=== PATIENT | male | born 1965 | race Caucasian/White ===

== ENCOUNTER 2016-08-14 16:01 | Emergency (ER) | payer MEDICAID, OTHER ==
[~2016-08-14] VITALS: Ht 170.2 cm; Wt 102.1 kg
[~2016-08-14 16:01] MED LIST: CITA-30; CLON1TAB72
[2016-08-14 16:32] VITALS: BP 128/84
[2016-08-14] MEDS ORDERED: KETOROLAC TROMETH 30 MG/ML 1ML VIAL IV ONE (17:30)
[2016-08-14] MEDS ORDERED: PROMETHAZINE HCL 25 MG/ML 1ML IV ONE (17:30)
[2016-08-14] MEDS ORDERED: HYDR-391 PO (17:51)
[2016-08-14] MEDS ORDERED: NAP500T PO (17:51)
== END 2016-08-14 18:13 | disposition home or self-care (01) ==
LOC: EDBD 16:01 → ER 16:03
DX: S42.351A Displaced comminuted fracture of shaft of humerus, right arm, initial encounter for closed fracture (principal); K76.9 Liver disease, unspecified; F12.10 Cannabis abuse, uncomplicated; Z88.8 Allergy status to other drugs, medicaments and biological substances; X58.XXXA Exposure to other specified factors, initial encounter; Y93.89 Activity, other specified; Y99.8 Other external cause status; Y92.89 Other specified places as the place of occurrence of the external cause
CPT/HCPCS: 29105; 73060; 96374; 96375; 99284; J1885; J2550

== ENCOUNTER 2016-08-27 18:14 | Inpatient (IN) | payer MEDICAID ==
[~2016-08-27] VITALS: Ht 170.2 cm; Wt 103.0 kg
[~2016-08-27 18:14] MED LIST changes: +HYDR-391 PO; +NAP500T PO
[2016-08-27 19:08] LABS: Basophils # (auto) 0 uL; Basophils % (auto) 0.6 % (0.0-2.0); Eosinophils # (auto) 0 uL; Eosinophils % (auto) 0.5 % (0.0-7.0); Hematocrit 45.3 % (41.0-53.0); Hemoglobin 15.2 g/dL (13.5-17.5); Lymphocytes # (auto) 1.7 uL; Lymphocytes % (auto) 22.2 % (10.0-50.0); Mean Corpuscular Hemoglobin 33.5 pg (28.0-32.0); Mean Corpuscular Hgb Conc. 33.6 g/dL (32.0-36.0); Mean Corpuscular Volume 99.7 fL (80.0-100.0); Mean Platelet Volume 8.9 fL (7.4-10.4); Monocytes # (auto) 0.5 uL; Monocytes % (auto) 6.2 % (0.0-12.0); Neutrophils # (auto) 5.3 uL; Neutrophils % (auto) 70.5 % (37.0-80.0); Platelet Count (auto) 193 10^3/uL (140-450); Red Cell Distribution Width 13.3 % (11.6-16.0); White Blood Cell 7.6 10^3/uL (4.4-10.8)
[2016-08-27 19:15] LABS: INR 1.07 (0.9-1.15)
[2016-08-27] MEDS ORDERED: SODIUM CHLORIDE 0.9% 1,000 ML IVB ONE (19:34)
[2016-08-27 19:36] LABS: Albumin 4.4 g/dL (3.4-5.0); BUN/Creatinine Ratio 14.3; Calcium 8.4 mg/dL (8.5-10.1); Potassium 3.5 mmol/L (3.5-5.1)
[2016-08-27 19:39] LABS: Bilirubin, Total 1.8 mg/dL (0.2-1.0); Total Protein 8.2 g/dL (6.4-8.2)
[2016-08-27] MEDS ORDERED: PANTOPRAZOLE SODIUM 40 MG/10 ML VIAL IV ONE (19:45)
[2016-08-27] MEDS ORDERED: THIAMINE INJ 100 MG, MULTIPLE VITAMIN 10 ML, FOLIC ACID 1 MG, MAGNESIUM SULF SDV 50% 8 ... IV ONE ×5 (21:15)
[2016-08-27] MEDS ORDERED: BANANA BAG KIT 1 EA IV ONE (21:28)
[2016-08-27] MEDS ORDERED: LORazepam 2MG/ML-1ML VIAL IV ONE (22:15)
[2016-08-27] MEDS ORDERED: LORazepam 2MG/ML-1ML VIAL IV PRN (22:30)
[2016-08-27] MEDS ORDERED: NITROGLYCERIN 0.4 MG SL TAB SL PRN (22:30)
[2016-08-27] MEDS ORDERED: LACTULOSE 20Gm/30ML SOLN PO PRN (22:30)
[2016-08-27] MEDS ORDERED: MORPHINE SULF INJ 2 MG/ML SYRINGE 1ML IV PRN (22:30)
[2016-08-27] MEDS ORDERED: MILK OF MAGNESIA 30ML SUSP PO PRN (22:30)
[2016-08-27] MEDS: SODIUM CHLORIDE 0.9% 1,000 ML IV SCH (22:41)
[2016-08-27 23:28] LABS: Amylase 58 U/L (25-115)
[2016-08-28 01:15] LABS: Hematocrit 43.3 % (41.0-53.0); Hemoglobin 14.4 g/dL (13.5-17.5)
[2016-08-28] MEDS: clonazePAM 0.5 MG TAB PO PRN ×2 (02:18→08:59)
[2016-08-28 05:00] VITALS: BP 147/100
[2016-08-28 06:00] LABS: Basophils # (auto) 0 uL; Basophils % (auto) 0.3 % (0.0-2.0); Eosinophils # (auto) 0.1 uL; Eosinophils % (auto) 0.7 % (0.0-7.0); Hematocrit 44.8 % (41.0-53.0); Hemoglobin 15.1 g/dL (13.5-17.5); Lymphocytes # (auto) 2.3 uL; Mean Corpuscular Hemoglobin 33.8 pg (28.0-32.0); Mean Corpuscular Hgb Conc. 33.7 g/dL (32.0-36.0); Mean Corpuscular Volume 100.4 fL (80.0-100.0); Mean Platelet Volume 9.4 fL (7.4-10.4); Monocytes # (auto) 0.7 uL; Monocytes % (auto) 7.7 % (0.0-12.0); Neutrophils # (auto) 5.9 uL; Neutrophils % (auto) 65.3 % (37.0-80.0); Platelet Count (auto) 199 10^3/uL (140-450); Red Cell Distribution Width 13.7 % (11.6-16.0)
[2016-08-28 06:29] LABS: Albumin 4.3 g/dL (3.4-5.0); BUN/Creatinine Ratio 17.7; Bilirubin, Total 2.4 mg/dL (0.2-1.0); Calcium 8.6 mg/dL (8.5-10.1); Potassium 3.4 mmol/L (3.5-5.1)
[2016-08-28] MEDS: CITALOPRAM HYDROBR 20 MG TAB PO SCH (08:59)
[2016-08-28 09:00] VITALS: BP 149/91
[2016-08-28] MEDS: PANTOPRAZOLE SODIUM 40 MG/10 ML VIAL IV SCH (09:36)
[2016-08-28] MEDS: SODIUM CHLORIDE 0.9% 1,000 ML IV SCH (10:57)
[2016-08-28 12:22] LABS: Hematocrit 45.7 % (41.0-53.0); Hemoglobin 15.2 g/dL (13.5-17.5)
[2016-08-28 13:00] VITALS: BP 139/83
[2016-08-28] MEDS: HYDROmorphone HCL 2 MG/ML VL IV PRN ×2 (15:06→22:30)
[2016-08-28 17:00] VITALS: BP 148/84
[2016-08-28 21:28] VITALS: BP 151/92
[2016-08-29] VITALS (7 sets, daily range): BP systolic 123–160; BP diastolic 78–100
[2016-08-29] MEDS: SODIUM CHLORIDE 0.9% 1,000 ML IV SCH ×2 (00:07→11:59)
[2016-08-29] MEDS: HYDROmorphone HCL 2 MG/ML VL IV PRN ×4 (02:32→21:51)
[2016-08-29 05:49] LABS: Urine Bilirubin Negative (Negative); Urine Blood Negative /uL (Negative); Urine Color Yellow (Yellow); Urine Glucose Normal (Normal); Urine Ketone 1+ (Negative); Urine Mucus FEW (None Seen); Urine Nitrite Negative (Negative); Urine RBC <1 /hpf (0 - 3); Urine pH 5.5 (5.0-8.0)
[2016-08-29 07:21] LABS: Basophils # (auto) 0 uL; Basophils % (auto) 0.5 % (0.0-2.0); Eosinophils # (auto) 0.2 uL; Eosinophils % (auto) 4.3 % (0.0-7.0); Hemoglobin 14.1 g/dL (13.5-17.5); Lymphocytes # (auto) 1.3 uL; Mean Corpuscular Hemoglobin 33.8 pg (28.0-32.0); Mean Corpuscular Hgb Conc. 33.5 g/dL (32.0-36.0); Mean Corpuscular Volume 100.8 fL (80.0-100.0); Monocytes # (auto) 0.5 uL; Monocytes % (auto) 8.7 % (0.0-12.0); Neutrophils # (auto) 3.6 uL; Neutrophils % (auto) 63.5 % (37.0-80.0); Platelet Count (auto) 159 10^3/uL (140-450); Red Cell Distribution Width 13.3 % (11.6-16.0); White Blood Cell 5.7 10^3/uL (4.4-10.8)
[2016-08-29 07:46] LABS: Albumin 3.8 g/dL (3.4-5.0); BUN/Creatinine Ratio 26.9; Bilirubin, Total 2.2 mg/dL (0.2-1.0); Calcium 8.5 mg/dL (8.5-10.1); Magnesium 2.2 mg/dL (1.6-2.6); Potassium 3.4 mmol/L (3.5-5.1); Total Protein 7.3 g/dL (6.4-8.2)
[2016-08-29] MEDS: PANTOPRAZOLE SODIUM 40 MG/10 ML VIAL IV SCH ×2 (10:02→21:50)
[2016-08-29] MEDS: CITALOPRAM HYDROBR 20 MG TAB PO SCH (10:04)
[2016-08-29] MEDS: POTASSIUM CHL 20MEQ/100ML 100 ML IV SCH ×2 (10:05→12:05)
[2016-08-29] MEDS ORDERED: THIAMINE INJ 100 MG, MULTIPLE VITAMIN 10 ML, FOLIC ACID 1 MG, MAGNESIUM SULF SDV 50% 8 ... IV SCH ×5 (12:00)
[2016-08-29] MEDS: THIAMINE INJ 100 MG, MULTIPLE VITAMIN 10 ML, FOLIC ACID 1 MG, MAGNESIUM SULF SDV 50% 8 ... IV SCH ×5 (14:30)
[2016-08-29] MEDS: clonazePAM 0.5 MG TAB PO PRN (21:51)
[2016-08-30] MEDS: SODIUM CHLORIDE 0.9% 1,000 ML IV SCH ×2 (00:27→09:08)
[2016-08-30] MEDS: HYDROmorphone HCL 2 MG/ML VL IV PRN ×4 (02:07→20:29)
[2016-08-30] MEDS: clonazePAM 0.5 MG TAB PO PRN ×2 (05:26→21:58)
[2016-08-30 05:46] VITALS: BP 141/75
[2016-08-30 06:25] LABS: Basophils # (auto) 0 uL; Basophils % (auto) 0.4 % (0.0-2.0); Eosinophils # (auto) 0.3 uL; Eosinophils % (auto) 5.5 % (0.0-7.0); Hematocrit 42.9 % (41.0-53.0); Hemoglobin 14.4 g/dL (13.5-17.5); Lymphocytes # (auto) 1.6 uL; Lymphocytes % (auto) 25.5 % (10.0-50.0); Mean Corpuscular Hgb Conc. 33.5 g/dL (32.0-36.0); Mean Corpuscular Volume 101.4 fL (80.0-100.0); Mean Platelet Volume 9.5 fL (7.4-10.4); Monocytes # (auto) 0.6 uL; Monocytes % (auto) 9.1 % (0.0-12.0); Neutrophils # (auto) 3.7 uL; Neutrophils % (auto) 59.5 % (37.0-80.0); Platelet Count (auto) 176 10^3/uL (140-450); Red Cell Distribution Width 13.4 % (11.6-16.0); White Blood Cell 6.3 10^3/uL (4.4-10.8)
[2016-08-30 07:01] LABS: Albumin 3.7 g/dL (3.4-5.0); BUN/Creatinine Ratio 22.8; Bilirubin, Total 1.6 mg/dL (0.2-1.0); Calcium 8.4 mg/dL (8.5-10.1); Potassium 3.3 mmol/L (3.5-5.1); Total Protein 7.2 g/dL (6.4-8.2)
[2016-08-30] MEDS ORDERED: SODIUM CHLORIDE LOCK 10 ML ONE (08:23)
[2016-08-30] MEDS ORDERED: FLUMAZENIL 0.1 MG/ML INJ 10ML MDV IV ONE (08:24)
[2016-08-30] MEDS ORDERED: diphenhdrAMINE HCL 50 MG/1 ML VL ONE (08:24)
[2016-08-30] MEDS ORDERED: NALOXONE HCL 0.4 MG/ML VIAL ONE (08:24)
[2016-08-30] MEDS ORDERED: LIDOCAINE VISCOUS 2% 15ML UD ONE (08:24)
[2016-08-30 08:48] VITALS: BP 153/93
[2016-08-30 09:10] LABS: INR 1.07 (0.9-1.15); Partial Thromboplastin Time 26.4 sec (22.64-33.71)
[2016-08-30] MEDS: PANTOPRAZOLE SODIUM 40 MG/10 ML VIAL IV SCH (09:55)
[2016-08-30] MEDS: CITALOPRAM HYDROBR 20 MG TAB PO SCH (09:56)
[2016-08-30] MEDS ORDERED: POTASSIUM CHLORIDE 40 MEQ, LIDOCAINE 1% (LOCAL ANESTH.) 4 ML in SODIUM CHL 0.9% 250 ML IV ONE (10:45)
[2016-08-30] MEDS: fentaNYL CITRATE 100 MCG/2 ML VL ONE ×2 (11:27→11:30)
[2016-08-30] MEDS: MIDAZOLAM HCL 5 MG/ML-1ML VIAL ONE ×2 (11:27→11:30)
[2016-08-30] MEDS: THIAMINE INJ 100 MG, MULTIPLE VITAMIN 10 ML, FOLIC ACID 1 MG, MAGNESIUM SULF SDV 50% 8 ... IV SCH ×5 (15:48)
[2016-08-30 17:09] VITALS: BP 144/87
[2016-08-30] MEDS: PANTOPRAZOLE 40 MG TAB PO SCH (21:59)
[2016-08-30 22:21] VITALS: BP 155/87
[2016-08-31] MEDS: HYDROmorphone HCL 2 MG/ML VL IV PRN ×4 (00:46→22:39)
[2016-08-31] MEDS: SODIUM CHLORIDE 0.9% 1,000 ML IV SCH ×2 (01:27→14:36)
[2016-08-31 05:30] VITALS: BP 148/79
[2016-08-31 05:51] LABS: Basophils # (auto) 0 uL; Basophils % (auto) 0.5 % (0.0-2.0); Eosinophils # (auto) 0.3 uL; Eosinophils % (auto) 5.4 % (0.0-7.0); Hematocrit 42.7 % (41.0-53.0); Hemoglobin 14.3 g/dL (13.5-17.5); Lymphocytes # (auto) 1.3 uL; Lymphocytes % (auto) 20.5 % (10.0-50.0); Mean Corpuscular Hemoglobin 33.6 pg (28.0-32.0); Mean Corpuscular Hgb Conc. 33.4 g/dL (32.0-36.0); Mean Corpuscular Volume 100.6 fL (80.0-100.0); Mean Platelet Volume 9.4 fL (7.4-10.4); Monocytes # (auto) 0.7 uL; Monocytes % (auto) 10.4 % (0.0-12.0); Neutrophils % (auto) 63.2 % (37.0-80.0); Platelet Count (auto) 181 10^3/uL (140-450); Red Cell Distribution Width 13.4 % (11.6-16.0); White Blood Cell 6.4 10^3/uL (4.4-10.8)
[2016-08-31 06:19] LABS: Albumin 3.7 g/dL (3.4-5.0); BUN/Creatinine Ratio 24.2; Bilirubin, Total 1.6 mg/dL (0.2-1.0); Calcium 8.8 mg/dL (8.5-10.1); Potassium 4.2 mmol/L (3.5-5.1); Total Protein 7.4 g/dL (6.4-8.2)
[2016-08-31 09:00] VITALS: BP 134/89
[2016-08-31] MEDS: PANTOPRAZOLE 40 MG TAB PO SCH ×2 (10:08→21:23)
[2016-08-31] MEDS: CITALOPRAM HYDROBR 20 MG TAB PO SCH (10:08)
[2016-08-31 13:00] VITALS: BP 144/92
[2016-08-31] MEDS: THIAMINE INJ 100 MG, MULTIPLE VITAMIN 10 ML, FOLIC ACID 1 MG, MAGNESIUM SULF SDV 50% 8 ... IV SCH ×5 (15:46)
[2016-08-31 18:15] VITALS: BP 148/86
[2016-08-31] MEDS: clonazePAM 0.5 MG TAB PO PRN (19:51)
[2016-08-31 22:24] VITALS: BP 168/90
[2016-09-01] MEDS: HYDROmorphone HCL 2 MG/ML VL IV PRN ×2 (02:42→06:35)
[2016-09-01] MEDS: SODIUM CHLORIDE 0.9% 1,000 ML IV SCH (02:42)
[2016-09-01 05:14] VITALS: BP 154/101
[2016-09-01 06:55] LABS: Basophils # (auto) 0 uL; Basophils % (auto) 0.4 % (0.0-2.0); Eosinophils # (auto) 0.4 uL; Eosinophils % (auto) 5.7 % (0.0-7.0); Hematocrit 44.3 % (41.0-53.0); Hemoglobin 14.8 g/dL (13.5-17.5); Lymphocytes # (auto) 1.5 uL; Lymphocytes % (auto) 23.5 % (10.0-50.0); Mean Corpuscular Hemoglobin 33.8 pg (28.0-32.0); Mean Corpuscular Hgb Conc. 33.4 g/dL (32.0-36.0); Mean Corpuscular Volume 101.4 fL (80.0-100.0); Mean Platelet Volume 9.8 fL (7.4-10.4); Monocytes # (auto) 0.7 uL; Monocytes % (auto) 11.7 % (0.0-12.0); Neutrophils # (auto) 3.6 uL; Neutrophils % (auto) 58.7 % (37.0-80.0); Platelet Count (auto) 176 10^3/uL (140-450); Red Cell Distribution Width 12.6 % (11.6-16.0); White Blood Cell 6.2 10^3/uL (4.4-10.8)
[2016-09-01 07:22] LABS: Albumin 3.7 g/dL (3.4-5.0); BUN/Creatinine Ratio 24.1; Bilirubin, Total 1.7 mg/dL (0.2-1.0); Calcium 8.7 mg/dL (8.5-10.1); Potassium 3.9 mmol/L (3.5-5.1); Total Protein 7.3 g/dL (6.4-8.2)
[2016-09-01 09:00] VITALS: BP 139/89
[2016-09-01] MEDS: PANTOPRAZOLE 40 MG TAB PO SCH (10:12)
[2016-09-01] MEDS: CITALOPRAM HYDROBR 20 MG TAB PO SCH (10:12)
[2016-09-01 12:53] VITALS: BP 139/89
== END 2016-09-01 14:00 | disposition home or self-care (01) | DRG 241 ==
LOC: EDBD 18:14 → ER 18:15 → TELE-EAST 18:16
PROVIDERS: ADMIT Family Medicine; ATTEND Internal Medicine
PROC: 0DB68ZX Excision of Stomach, Via Natural or Artificial Opening Endoscopic, Diagnostic (ICD-10-PCS; principal; 2016-08-30 11:23)
DX: K29.20 Alcoholic gastritis without bleeding (principal); K92.0 Hematemesis; K76.0 Fatty (change of) liver, not elsewhere classified; S42.301A Unspecified fracture of shaft of humerus, right arm, initial encounter for closed fracture; K29.80 Duodenitis without bleeding; K70.9 Alcoholic liver disease, unspecified; S42.401A Unspecified fracture of lower end of right humerus, initial encounter for closed fracture; K20.9 Esophagitis, unspecified; W19.XXXA Unspecified fall, initial encounter; E87.6 Hypokalemia; F10.229 Alcohol dependence with intoxication, unspecified; R04.0 Epistaxis; F41.9 Anxiety disorder, unspecified; F32.9 Major depressive disorder, single episode, unspecified; Z82.49 Family history of ischemic heart disease and other diseases of the circulatory system; Y92.89 Other specified places as the place of occurrence of the external cause; Y99.8 Other external cause status; Z88.8 Allergy status to other drugs, medicaments and biological substances; Z79.899 Other long term (current) drug therapy
CPT/HCPCS: 36415; 43239; 71010; 73060; 74176; 76705; 80053; 80320; 81001; 82150; 83690; 83735; 85014; 85018; 85025; 85049; 85610; 85730; 86850; 86900; 86901; 96361; 96365; 96375; C9113; J2001; J2250; J3480

== ENCOUNTER 2017-01-29 08:21 | Emergency (ER) | payer MEDICAID ==
[~2017-01-29] VITALS: Ht 170.2 cm; Wt 99.8 kg
[2017-01-29 08:51] VITALS: BP 151/81
[2017-01-29] MEDS ORDERED: TETANUS-DIPTH-ACEL PERTUSSIS 0.5ML SYRG IM ONE (09:30)
[2017-01-29] MEDS ORDERED: LIDOCAINE 1% HCL (LOCAL ANESTH.) INJ 20ML MDV IJ ONE (09:45)
[2017-01-29] MEDS ORDERED: BACITRACIN TOP OINT 1 UD PKG TOP ONE (10:00)
== END 2017-01-29 09:56 | disposition home or self-care (01) ==
LOC: ER 08:21
DX: S91.115A Laceration without foreign body of left lesser toe(s) without damage to nail, initial encounter (principal); W01.0XXA Fall on same level from slipping, tripping and stumbling without subsequent striking against object, initial encounter; Y93.89 Activity, other specified; Y99.8 Other external cause status; Y92.828 Other wilderness area as the place of occurrence of the external cause; Z88.8 Allergy status to other drugs, medicaments and biological substances
CPT/HCPCS: 12002; 90471; 90715; 99283; J2001

== ENCOUNTER 2017-01-31 14:22 | Emergency (ER) | payer MEDICAID ==
[~2017-01-31] VITALS: Ht 170.2 cm; Wt 99.8 kg
[2017-01-31 15:06] VITALS: BP 138/77
== END 2017-01-31 15:30 | disposition home or self-care (01) ==
LOC: ER 14:22
DX: S91.119D Laceration without foreign body of unspecified toe without damage to nail, subsequent encounter (principal); F12.10 Cannabis abuse, uncomplicated; Z88.1 Allergy status to other antibiotic agents

== ENCOUNTER 2017-02-07 09:50 | Emergency (ER) | payer MEDICAID ==
[~2017-02-07] VITALS: Ht 170.2 cm; Wt 101.6 kg
[2017-02-07 10:11] VITALS: BP 161/105
== END 2017-02-07 10:30 | disposition home or self-care (01) ==
LOC: ER 09:50
DX: S91.119D Laceration without foreign body of unspecified toe without damage to nail, subsequent encounter (principal); F12.10 Cannabis abuse, uncomplicated; Z88.8 Allergy status to other drugs, medicaments and biological substances; X58.XXXD Exposure to other specified factors, subsequent encounter